=== PATIENT | male | born 1965 | race Caucasian/White ===

== ENCOUNTER 2019-12-14 06:11 | Inpatient (IN) ==
[2019-12-14] MEDS ORDERED: CeFAZolin Syr 2,000MG/20 ML 2,000 MG/20 ML SYRINGE IVPB ONE (06:44)
[2019-12-14] MEDS ORDERED: Ringers Solution, Lactated 1,000 ML IVC SCH ×2 (06:45→07:30)
[2019-12-14] MEDS ORDERED: MetroNIDAZOLE 500 MG/100 ML 500 MG/100 ML BAG IVPB ONE ×2 (06:49→14:17)
[2019-12-14] MEDS ORDERED: Isovue-300 50ML VIAL ONE (07:11)
[2019-12-14] MEDS ORDERED: *HR* Rocuronium Bromide 50 MG/5 ML VIAL ONE ×4 (07:21→14:24)
[2019-12-14] MEDS ORDERED: Lidocaine -MPF 2% 2 ML VIAL ONE (07:21)
[2019-12-14] MEDS ORDERED: Acetaminophen IV 1,000 MG/100 ML INFUS..BTL IVPB ONE (07:21)
[2019-12-14] MEDS ORDERED: *HR* Succinylcholine 200 MG/10 ML VIAL IVP ONE (07:21)
[2019-12-14] MEDS ORDERED: *HR* Propofol 200 MG/20 ML VIAL IVP ONE (07:21)
[2019-12-14] MEDS ORDERED: *HR* FentaNYL (PF) 100 MCG/2 ML VIAL ONE (07:21)
[2019-12-14] MEDS ORDERED: Ondansetron 4 MG/2 ML VIAL ONE (07:21)
[2019-12-14] MEDS ORDERED: Lidocaine HCL 4 ML Topical Solution (Laryng-O-Jet Kit Sterile Pak) TP ONE (07:21)
[2019-12-14] MEDS ORDERED: Dexamethasone 4 MG/ML VIAL ONE (07:21)
[2019-12-14] MEDS ORDERED: *HR* Midazolam HCl 2 MG/2 ML VIAL ONE (07:21)
[2019-12-14] MEDS ORDERED: Ondansetron 4 MG/2 ML VIAL IVP PRN ×2 (07:31→15:36)
[2019-12-14] MEDS ORDERED: *HR* Meperidine 25 MG/ML SYRINGE IVP PRN (07:31)
[2019-12-14] MEDS ORDERED: *HR* Promethazine 25 MG/ML VIAL IVP PRN (07:31)
[2019-12-14] MEDS ORDERED: *HR* HYDROmorphone PF 0.5 MG/0.5 ML SYRINGE IVP PRN (07:31)
[2019-12-14] MEDS ORDERED: *HR* Phenylephrine 10 MG/ML VIAL ONE (08:24)
[2019-12-14] MEDS ORDERED: *HR* HYDROMORPHONE 2 MG/ML VIAL ONE (11:25)
[2019-12-14] MEDS ORDERED: *HR* Magnesium Sulfate 1 GM/2 ML VIAL ONE (13:51)
[2019-12-14] MEDS ORDERED: Naloxone 0.4 MG/ML INJ IVP PRN (15:31)
[2019-12-14] MEDS ORDERED: *HR* OxyCODONE Immed Rel 5 MG TABLET PO PRN (15:36)
[2019-12-14] MEDS ORDERED: MetroNIDAZOLE 500 MG/100 ML 500 MG/100 ML BAG IVPB SCH (16:00)
[2019-12-14] MEDS: levoFLOXacin 750 MG/150 ML 750 MG/150 ML BAG IVPB SCH (17:28)
[2019-12-14] MEDS: Ringers Solution, Lactated 1,000 ML IVC SCH (17:29)
[2019-12-14] MEDS: *HR* OxyCODONE ER (12 HR) 10 MG TABLET PO SCH (17:29)
[2019-12-14] MEDS: MetroNIDAZOLE 500 MG/100 ML 500 MG/100 ML BAG IVPB SCH (21:13)
[2019-12-15] MEDS: *HR* OxyCODONE ER (12 HR) 10 MG TABLET PO SCH ×2 (04:27→15:57)
[2019-12-15] MEDS: Ringers Solution, Lactated 1,000 ML IVC SCH (04:28)
[2019-12-15 06:29] LABS: Basophils % 0.2 %; Hemoglobin 11.3 g/dL (12.9-16.9); Immature Granulocytes % 0.4 % (0-4); Lymphocytes # 0.4 K/mcL (0.6-4.6); Lymphocytes % 3.2 %; Mean Corpuscular HGB Conc 34.2 g/dL (31.6-35.5); Mean Corpuscular Hemoglobin 36.5 pg (28.0-33.3); Mean Corpuscular Volume 106.5 fL (83.0-100.0); Mean Platelet Volume 9.8 fL (9.4-12.4); Monocytes # 0.8 K/mcL (0.0-1.3); Neutrophils # 10.7 K/mcL (1.6-8.9); Platelet Count 223 K/mcL (140-400); Red Cell Distribution Width 12.5 % (11.5-14.5); Segmented Neutrophils % 89.2 %; White Blood Count 11.9 K/mcL (4.3-11.1)
[2019-12-15 06:43] LABS: BUN/Creatinine Ratio 15 (6-26); Blood Urea Nitrogen 10 mg/dL (6-20); Calcium 8.3 mg/dL (8.6-10.3); Carbon Dioxide 25 mEq/L (23-29); Chloride 107 mEq/L (98-107); Glucose 120 mg/dL (70-105); Osmolality,Calculated 290 (280-300); Phosphorous 3.1 mg/dL (2.7-4.5); Potassium 4.3 mEq/L (3.5-5.1); Sodium 140 mEq/L (136-145); eGFR For African Americans > 60 (> 60); eGFR For Non-African Americans > 60 (> 60)
[2019-12-15] MEDS: MetroNIDAZOLE 500 MG/100 ML 500 MG/100 ML BAG IVPB SCH ×3 (06:46→21:57)
[2019-12-15] MEDS ORDERED: Morphine Sulfate Oral CONC 10 MG/0.5 ML ORAL.SYG SL PRN (08:35)
[2019-12-15] MEDS: levoFLOXacin 750 MG/150 ML 750 MG/150 ML BAG IVPB SCH (09:13)
[2019-12-15] MEDS: D5% in 0.45% NACL w KCl 20 MEQ/1,000 ML MLS IVC SCH ×2 (09:20→18:44)
[2019-12-15] MEDS: Nicotine 7 MG PATCH.TD24 TD SCH (15:57)
[2019-12-15] MEDS: *HR* OxyCODONE/APAP 10/325 TABLET PO PRN (21:56)
[2019-12-16] MEDS: D5% in 0.45% NACL w KCl 20 MEQ/1,000 ML MLS IVC SCH ×2 (04:27→13:51)
[2019-12-16] MEDS: *HR* OxyCODONE ER (12 HR) 10 MG TABLET PO SCH ×2 (04:27→16:05)
[2019-12-16] MEDS: MetroNIDAZOLE 500 MG/100 ML 500 MG/100 ML BAG IVPB SCH ×3 (06:40→22:51)
[2019-12-16] MEDS: *HR* Enoxaparin 40 MG/0.4 ML SYRINGE SQ SCH (06:40)
[2019-12-16] MEDS: *HR* OxyCODONE/APAP 10/325 TABLET PO PRN ×2 (08:53→22:52)
[2019-12-16] MEDS: Nicotine 7 MG PATCH.TD24 TD SCH (08:54)
[2019-12-16] MEDS: levoFLOXacin 750 MG/150 ML 750 MG/150 ML BAG IVPB SCH (08:54)
[2019-12-16 11:01] LABS: Basophils % 0.2 %; Eosinophils % 0.1 %; Hematocrit 32.6 % (37.5-50.1); Immature Granulocytes % 1.4 % (0-4); Lymphocytes # 0.5 K/mcL (0.6-4.6); Lymphocytes % 5.7 %; Mean Corpuscular HGB Conc 33.7 g/dL (31.6-35.5); Mean Corpuscular Hemoglobin 36.2 pg (28.0-33.3); Mean Corpuscular Volume 107.2 fL (83.0-100.0); Mean Platelet Volume 9.8 fL (9.4-12.4); Monocytes # 0.6 K/mcL (0.0-1.3); Monocytes % 7.6 %; Neutrophils # 7.2 K/mcL (1.6-8.9); Platelet Count 218 K/mcL (140-400); Red Blood Count 3.04 M/mcL (4.19-5.50); Red Cell Distribution Width 12.6 % (11.5-14.5); White Blood Count 8.5 K/mcL (4.3-11.1)
[2019-12-16 11:19] LABS: BUN/Creatinine Ratio 14 (6-26); Blood Urea Nitrogen 8 mg/dL (6-20); Calcium 8.3 mg/dL (8.6-10.3); Carbon Dioxide 23 mEq/L (23-29); Chloride 107 mEq/L (98-107); Glucose 162 mg/dL (70-105); Magnesium 1.7 mg/dL (1.6-2.6); Osmolality,Calculated 286 (280-300); Phosphorous 1.5 mg/dL (2.7-4.5); Potassium 3.8 mEq/L (3.5-5.1); Sodium 137 mEq/L (136-145); eGFR For African Americans > 60 (> 60); eGFR For Non-African Americans > 60 (> 60)
[2019-12-16] MEDS ORDERED: Potassium Phosphate 44 MEQ in 0.9 % Sodium Chloride 250 ML IVPB ONE (13:14)
[2019-12-16] MEDS ORDERED: Ketorolac 30 MG/ML VIAL IVP ONE (13:15)
[2019-12-16] MEDS: Ketorolac 15 MG/ML VIAL IVP SCH ×2 (18:51→22:52)
[2019-12-17] MEDS: *HR* OxyCODONE ER (12 HR) 10 MG TABLET PO SCH (04:38)
[2019-12-17] MEDS: D5% in 0.45% NACL w KCl 20 MEQ/1,000 ML MLS IVC SCH (04:38)
[2019-12-17] MEDS: Ketorolac 15 MG/ML VIAL IVP SCH (06:21)
[2019-12-17] MEDS: MetroNIDAZOLE 500 MG/100 ML 500 MG/100 ML BAG IVPB SCH (06:22)
[2019-12-17] MEDS: *HR* Enoxaparin 40 MG/0.4 ML SYRINGE SQ SCH (06:22)
[2019-12-17 07:13] LABS: BUN/Creatinine Ratio 9 (6-26); Blood Urea Nitrogen 6 mg/dL (6-20); Calcium 8.3 mg/dL (8.6-10.3); Carbon Dioxide 24 mEq/L (23-29); Chloride 110 mEq/L (98-107); Glucose 113 mg/dL (70-105); Magnesium 1.9 mg/dL (1.6-2.6); Osmolality,Calculated 288 (280-300); Phosphorous 3.5 mg/dL (2.7-4.5); Potassium 4.1 mEq/L (3.5-5.1); Sodium 140 mEq/L (136-145); eGFR For African Americans > 60 (> 60); eGFR For Non-African Americans > 60 (> 60)
[2019-12-17] MEDS ORDERED: Ibuprofen 600 MG TABLET PO PRN (07:34)
[2019-12-17] MEDS ORDERED: D5% in 0.45% NACL w KCl 20 MEQ/1,000 ML MLS IVC SCH (07:35)
[2019-12-17] MEDS: levoFLOXacin 750 MG/150 ML 750 MG/150 ML BAG IVPB SCH (09:17)
[2019-12-17] MEDS: Nicotine 7 MG PATCH.TD24 TD SCH (09:27)
[2019-12-17 10:13] VITALS: BP 101/66
[2019-12-17] MEDS ORDERED: FLU Vac QV 20-21 (6Month+)/PF 0.5 ML SYRINGE IM ONE (13:18)
== END 2019-12-17 16:55 | disposition home or self-care (01) | DRG 331 ==
LOC: SAMDAY 06:11 → 3ANU 16:12
PROVIDERS: ADMIT Surgery; ATTEND Surgery

== ENCOUNTER 2020-06-26 16:36 | Observation (INO) ==
[2020-06-26] MEDS ORDERED: Isovue-370 500 ML BOTTLE IVP ONE (17:12)
[2020-06-26] MEDS ORDERED: 0.9 % Sodium Chloride 1,000 ML IVC ONE (17:17)
[2020-06-26] MEDS ORDERED: *HR* FentaNYL (PF) 100 MCG/2 ML VIAL IVP ONE ×2 (17:17→17:55)
[2020-06-26] MEDS ORDERED: Ondansetron 4 MG/2 ML VIAL IVP ONE (17:17)
[2020-06-26 17:29] LABS: Basophils % 0.3 %; Eosinophils % 0.5 %; Hematocrit 41.5 % (37.5-50.1); Hemoglobin 14.5 g/dL (12.9-16.9); Immature Granulocytes % 0.7 % (0-4); Lymphocytes # 0.6 K/mcL (0.6-4.6); Lymphocytes % 6.4 %; Mean Corpuscular HGB Conc 34.9 g/dL (31.6-35.5); Mean Corpuscular Volume 108.6 fL (83.0-100.0); Mean Platelet Volume 9.2 fL (9.4-12.4); Monocytes # 0.4 K/mcL (0.0-1.3); Monocytes % 5.1 %; Neutrophils # 7.5 K/mcL (1.6-8.9); Platelet Count 269 K/mcL (140-400); Red Blood Count 3.82 M/mcL (4.19-5.50); White Blood Count 8.6 K/mcL (4.3-11.1)
[2020-06-26 17:52] LABS: Alanine Aminotransferase 16 Units/L (7-52); Albumin 4.3 g/dL (3.5-5.7); Albumin/Globulin Ratio 1.2 (1.1-2.2); Alkaline Phosphatase 92 Units/L (34-104); Aspartate Amino Transferase 21 Units/L (13-39); BUN/Creatinine Ratio 22 (6-26); Bilirubin,Total 0.3 mg/dL (0.3-1.0); Blood Urea Nitrogen 15 mg/dL (6-20); Calcium 9.5 mg/dL (8.6-10.3); Carbon Dioxide 24 mEq/L (23-29); Chloride 102 mEq/L (98-107); Globulin 3.5 g/dL (2.4-3.5); Glucose 136 mg/dL (70-105); Lipase 116 Units/L (11-82); Osmolality,Calculated 287 (280-300); Potassium 3.7 mEq/L (3.5-5.1); Sodium 137 mEq/L (136-145); Total Protein 7.8 g/dL (6.4-8.9); Troponin I < 0.03 ng/mL (< 0.04); eGFR For African Americans > 60 (> 60); eGFR For Non-African Americans > 60 (> 60)
[2020-06-26] MEDS ORDERED: *HR* HYDROmorphone (PF) 1 MG/ML SYRINGE IVP ONE (19:04)
[2020-06-26] MEDS ORDERED: Ketamine *HR* 20 MG in 0.9 % Sodium Chloride 100 ML IVPB STA (19:31)
[2020-06-26] MEDS ORDERED: Ondansetron 4 MG/2 ML VIAL IVP PRN (20:56)
[2020-06-26] MEDS ORDERED: Acetaminophen 325 MG TABLET PO PRN (20:56)
[2020-06-26] MEDS ORDERED: Naloxone 0.4 MG/ML INJ IVP PRN (20:56)
[2020-06-26] MEDS ORDERED: Melatonin 3 MG TABLET PO PRN (20:56)
[2020-06-26] MEDS: Ketorolac 15 MG/ML VIAL IVP PRN (22:00)
[2020-06-26] MEDS ORDERED: Nicotine 21 MG PATCH.TD24 TD PRN (22:18)
[2020-06-27 00:52] LABS: Influenza A PCR Negative (Negative); Influenza B PCR Negative (Negative); Resp. Syncytial Virus PCR Negative (Negative)
[2020-06-27 01:04] LABS: SARS-CoV-2 by PCR (In House) Negative (Negative)
[2020-06-27 02:21] LABS: Basophils % 0.2 %; Eosinophils % 0.2 %; Hemoglobin 13.7 g/dL (12.9-16.9); Immature Granulocytes % 0.6 % (0-4); Lymphocytes # 0.5 K/mcL (0.6-4.6); Mean Corpuscular HGB Conc 34.3 g/dL (31.6-35.5); Mean Corpuscular Hemoglobin 37.2 pg (28.0-33.3); Mean Corpuscular Volume 108.7 fL (83.0-100.0); Mean Platelet Volume 9.3 fL (9.4-12.4); Monocytes # 0.6 K/mcL (0.0-1.3); Monocytes % 6.5 %; Neutrophils # 7.4 K/mcL (1.6-8.9); Platelet Count 255 K/mcL (140-400); Red Blood Count 3.68 M/mcL (4.19-5.50); Segmented Neutrophils % 86.5 %; White Blood Count 8.5 K/mcL (4.3-11.1)
[2020-06-27 02:34] LABS: Alanine Aminotransferase 15 Units/L (7-52); Albumin 3.9 g/dL (3.5-5.7); Albumin/Globulin Ratio 1.3 (1.1-2.2); Alkaline Phosphatase 85 Units/L (34-104); Aspartate Amino Transferase 18 Units/L (13-39); BUN/Creatinine Ratio 29 (6-26); Bilirubin,Total 0.3 mg/dL (0.3-1.0); Blood Urea Nitrogen 14 mg/dL (6-20); Calcium 8.7 mg/dL (8.6-10.3); Carbon Dioxide 24 mEq/L (23-29); Chloride 104 mEq/L (98-107); Globulin 3.1 g/dL (2.4-3.5); Glucose 110 mg/dL (70-105); Osmolality,Calculated 283 (280-300); Phosphorous 3.6 mg/dL (2.7-4.5); Sodium 136 mEq/L (136-145); eGFR For African Americans > 60 (> 60); eGFR For Non-African Americans > 60 (> 60)
[2020-06-27] MEDS: Ketorolac 15 MG/ML VIAL IVP PRN (05:33)
[2020-06-27] MEDS ORDERED: Chloraseptic Spray 177 ML BOTTLE MM PRN (05:40)
[2020-06-27 15:43] VITALS: BP 129/86
[2020-06-27] MEDS ORDERED: Sennosides 8.6 MG TABLET PO SCH (21:00)
[2020-06-27] MEDS ORDERED: Budesonide/Formoterol 160/4.5 1 PUFF INH IH SCH (22:00)
[2020-06-28] MEDS ORDERED: Ciprofloxacin HCL Soln 5 ML BOTTLE RIGHT EYE SCH (09:00)
[2020-06-28] MEDS ORDERED: Cyanocobalamin (B-12) 1,000 MCG TABLET PO SCH (09:00)
[2020-06-28] MEDS ORDERED: FLUoxetine 20 MG CAPSULE PO SCH (09:00)
[2020-06-28] MEDS ORDERED: Dexamethasone OPTH Drop 5 ML BOTTLE RIGHT EYE SCH (09:00)
[2020-06-28] MEDS ORDERED: Multivit/Ca/Min/Fe/FA 1 TAB TABLET PO SCH (09:00)
== END 2020-06-27 17:41 | disposition home or self-care (01) ==
LOC: EMEROOARM 16:36 → 3ANU 16:36 → SUATTDRO 19:54 → 3ANU 20:52
PROVIDERS: ADMIT Internal Medicine; ATTEND Internal Medicine

== ENCOUNTER 2021-05-18 06:18 | Inpatient (IN) ==
[2021-05-18] MEDS ORDERED: Ringers Solution, Lactated 1,000 ML IVC SCH (06:45)
[2021-05-18] MEDS ORDERED: *HR* FentaNYL (PF) 100 MCG/2 ML VIAL ONE ×2 (07:20→10:27)
[2021-05-18] MEDS ORDERED: Bupivacaine/EPI 1:200k 0.25% 50 ML VIAL ONE (07:21)
[2021-05-18] MEDS ORDERED: *HR* Propofol 200 MG/20 ML VIAL IVP ONE (07:21)
[2021-05-18] MEDS ORDERED: *HR* Midazolam HCl 2 MG/2 ML VIAL ONE (07:21)
[2021-05-18] MEDS ORDERED: *HR* Rocuronium Bromide 50 MG/5 ML VIAL ONE ×3 (07:24→10:55)
[2021-05-18] MEDS ORDERED: Lidocaine -MPF 2% 5 ML VIAL ONE (07:24)
[2021-05-18] MEDS ORDERED: Lidocaine HCL 4 ML Topical Solution (Laryng-O-Jet Kit Sterile Pak) TP ONE (07:24)
[2021-05-18] MEDS ORDERED: Ondansetron 4 MG/2 ML VIAL ONE (07:26)
[2021-05-18] MEDS ORDERED: CeFAZolin Syr 2,000MG/20 ML 2,000 MG/20 ML SYRINGE IVPB ONE (07:45)
[2021-05-18] MEDS ORDERED: *HR* OxyCODONE Immed Rel 5 MG TABLET PO PRN (07:49)
[2021-05-18] MEDS ORDERED: Promethazine 6.25 MG in Water for inj. (sterile) 20 ML IVPB PRN (07:49)
[2021-05-18] MEDS ORDERED: Ondansetron 4 MG/2 ML VIAL IVP PRN (07:49)
[2021-05-18] MEDS ORDERED: *HR* Succinylcholine 200 MG/10 ML VIAL IVP ONE (07:52)
[2021-05-18] MEDS ORDERED: Acetaminophen IV 1,000 MG/100 ML BAG IVPB ONE (08:22)
[2021-05-18] MEDS ORDERED: EPHEDrine 50 MG/ML VIAL ONE (10:08)
[2021-05-18] MEDS ORDERED: Albumin Human 5% 12.5 GM/250 ML IV.SOLN ONE (11:27)
[2021-05-18] MEDS ORDERED: Sugammadex Sodium 200 MG/2 ML VIAL IV ONE (12:01)
[2021-05-18] MEDS ORDERED: *HR* HYDROMORPHONE 2 MG/ML VIAL ONE (12:01)
[2021-05-18] MEDS: *HR* HYDROmorphone PF 0.5 MG/0.5 ML SYRINGE IVP PRN ×2 (12:40→12:54)
[2021-05-18] MEDS ORDERED: Ketorolac 30 MG/ML VIAL IVP ONE (13:43)
[2021-05-18] MEDS ORDERED: *HR* HYDROmorphone PCA *PREMADE* 20 MG/1MG/ML (20mL) PCA VIAL IVC PRN (13:43)
[2021-05-18] MEDS: 0.9 % Sodium Chloride 1,000 ML IVC SCH ×2 (14:10→23:38)
[2021-05-18] MEDS: Acetaminophen IV 1,000 MG/100 ML BAG IVPB SCH (18:16)
[2021-05-18] MEDS: Budesonide/Formoterol 160/4.5 1 PUFF INH IH SCH (20:11)
[2021-05-19] MEDS: Acetaminophen IV 1,000 MG/100 ML BAG IVPB SCH ×5 (05:11→23:22)
[2021-05-19] MEDS: Budesonide/Formoterol 160/4.5 1 PUFF INH IH SCH ×2 (08:01→20:24)
[2021-05-19] MEDS: FLUoxetine 20 MG CAPSULE PO SCH (08:03)
[2021-05-19] MEDS: 0.9 % Sodium Chloride 1,000 ML IVC SCH ×2 (10:23→20:52)
[2021-05-19] MEDS: Ketorolac 30 MG/ML VIAL IVP PRN (14:43)
[2021-05-19] MEDS ORDERED: Isovue-370 500 ML BOTTLE IVP ONE (15:03)
[2021-05-19] MEDS: Ipratropium/Albuterol Neb 3 ML IH PRN (15:45)
[2021-05-19 16:54] LABS: Alanine Aminotransferase 12 Units/L (7-52); Albumin 3.4 g/dL (3.5-5.7); Albumin/Globulin Ratio 1.4 (1.1-2.2); Alkaline Phosphatase 65 Units/L (34-104); Aspartate Amino Transferase 25 Units/L (13-39); BUN/Creatinine Ratio 28 (6-26); Bilirubin,Total 0.7 mg/dL (0.3-1.0); Blood Urea Nitrogen 17 mg/dL (6-20); Carbon Dioxide 25 mEq/L (23-29); Chloride 106 mEq/L (98-107); Globulin 2.4 g/dL (2.4-3.5); Glucose 137 mg/dL (70-105); Osmolality,Calculated 288 (280-300); Potassium 3.5 mEq/L (3.5-5.1); Sodium 137 mEq/L (136-145); Total Protein 5.8 g/dL (6.4-8.9); eGFR For African Americans > 60 (> 60); eGFR For Non-African Americans > 60 (> 60)
[2021-05-19] MEDS: *HR* Heparin 5,000 UNIT/ML VIAL SQ SCH (17:23)
[2021-05-20 03:31] LABS: Basophils % 0.3 %; Eosinophils % 0.5 %; Hematocrit 31.5 % (37.5-50.1); Hemoglobin 11.2 g/dL (12.9-16.9); Immature Granulocytes % 0.5 % (0-4); Lymphocytes # 0.7 K/mcL (0.6-4.6); Lymphocytes % 8.4 %; Mean Corpuscular HGB Conc 35.6 g/dL (31.6-35.5); Mean Corpuscular Hemoglobin 35.9 pg (28.0-33.3); Monocytes # 0.9 K/mcL (0.0-1.3); Monocytes % 9.8 %; Neutrophils # 7.1 K/mcL (1.6-8.9); Platelet Count 194 K/mcL (140-400); Red Blood Count 3.12 M/mcL (4.19-5.50); Red Cell Distribution Width 12.3 % (11.5-14.5); Segmented Neutrophils % 80.5 %; White Blood Count 8.9 K/mcL (4.3-11.1)
[2021-05-20 03:45] LABS: Alanine Aminotransferase 12 Units/L (7-52); Albumin 3.2 g/dL (3.5-5.7); Albumin/Globulin Ratio 1.2 (1.1-2.2); Alkaline Phosphatase 64 Units/L (34-104); Aspartate Amino Transferase 25 Units/L (13-39); BUN/Creatinine Ratio 24 (6-26); Bilirubin,Total 0.7 mg/dL (0.3-1.0); Blood Urea Nitrogen 13 mg/dL (6-20); Calcium 8.1 mg/dL (8.6-10.3); Carbon Dioxide 23 mEq/L (23-29); Chloride 107 mEq/L (98-107); Globulin 2.6 g/dL (2.4-3.5); Glucose 108 mg/dL (70-105); Osmolality,Calculated 285 (280-300); Potassium 3.5 mEq/L (3.5-5.1); Sodium 137 mEq/L (136-145); Total Protein 5.8 g/dL (6.4-8.9); eGFR For African Americans > 60 (> 60); eGFR For Non-African Americans > 60 (> 60)
[2021-05-20] MEDS: Ipratropium/Albuterol Neb 3 ML IH PRN (04:04)
[2021-05-20] MEDS: Acetaminophen IV 1,000 MG/100 ML BAG IVPB SCH ×4 (05:31→23:07)
[2021-05-20] MEDS: *HR* Heparin 5,000 UNIT/ML VIAL SQ SCH ×2 (05:31→17:35)
[2021-05-20] MEDS: Budesonide/Formoterol 160/4.5 1 PUFF INH IH SCH ×2 (07:51→19:42)
[2021-05-20] MEDS: FLUoxetine 20 MG CAPSULE PO SCH (07:56)
[2021-05-20] MEDS: Ketorolac 30 MG/ML VIAL IVP PRN (07:56)
[2021-05-20] MEDS: 0.9 % Sodium Chloride 1,000 ML IVC SCH ×2 (08:00→19:39)
[2021-05-21] MEDS: *HR* HYDROcodone/Acet 5/325 mg TABLET PO PRN ×4 (04:13→21:04)
[2021-05-21] MEDS: Acetaminophen IV 1,000 MG/100 ML BAG IVPB SCH ×3 (05:20→16:55)
[2021-05-21] MEDS: *HR* Heparin 5,000 UNIT/ML VIAL SQ SCH ×2 (05:22→16:57)
[2021-05-21] MEDS: Ipratropium/Albuterol Neb 3 ML IH PRN ×2 (05:30→20:07)
[2021-05-21] MEDS: 0.9 % Sodium Chloride 1,000 ML IVC SCH (05:53)
[2021-05-21 06:02] LABS: Basophils % 0.4 %; Eosinophils # 0.1 K/mcL (0.0-0.6); Eosinophils % 1.2 %; Hematocrit 30.9 % (37.5-50.1); Hemoglobin 10.7 g/dL (12.9-16.9); Immature Granulocytes % 0.6 % (0-4); Lymphocytes # 0.4 K/mcL (0.6-4.6); Lymphocytes % 6.1 %; Mean Corpuscular HGB Conc 34.6 g/dL (31.6-35.5); Mean Corpuscular Hemoglobin 35.8 pg (28.0-33.3); Mean Corpuscular Volume 103.3 fL (83.0-100.0); Mean Platelet Volume 9.8 fL (9.4-12.4); Monocytes # 0.6 K/mcL (0.0-1.3); Monocytes % 8.7 %; Neutrophils # 5.7 K/mcL (1.6-8.9); Platelet Count 203 K/mcL (140-400); Red Blood Count 2.99 M/mcL (4.19-5.50); Red Cell Distribution Width 12.3 % (11.5-14.5); White Blood Count 6.9 K/mcL (4.3-11.1)
[2021-05-21 06:24] LABS: Alanine Aminotransferase 17 Units/L (7-52); Albumin 3.3 g/dL (3.5-5.7); Albumin/Globulin Ratio 1.2 (1.1-2.2); Alkaline Phosphatase 68 Units/L (34-104); Aspartate Amino Transferase 34 Units/L (13-39); BUN/Creatinine Ratio 22 (6-26); Bilirubin,Total 0.5 mg/dL (0.3-1.0); Blood Urea Nitrogen 11 mg/dL (6-20); Calcium 8.1 mg/dL (8.6-10.3); Carbon Dioxide 23 mEq/L (23-29); Chloride 107 mEq/L (98-107); Globulin 2.8 g/dL (2.4-3.5); Glucose 99 mg/dL (70-105); Osmolality,Calculated 287 (280-300); Potassium 3.7 mEq/L (3.5-5.1); Sodium 139 mEq/L (136-145); Total Protein 6.1 g/dL (6.4-8.9); eGFR For African Americans > 60 (> 60); eGFR For Non-African Americans > 60 (> 60)
[2021-05-21] MEDS: FLUoxetine 20 MG CAPSULE PO SCH (07:33)
[2021-05-21] MEDS: Budesonide/Formoterol 160/4.5 1 PUFF INH IH SCH ×2 (07:42→20:06)
[2021-05-21] MEDS: D5% in 0.45% NACL w KCl 20 MEQ/1,000 ML MLS IVC SCH (16:57)
[2021-05-21] MEDS: Ondansetron 4 MG/2 ML VIAL IVP PRN (21:11)
[2021-05-22] MEDS: *HR* Heparin 5,000 UNIT/ML VIAL SQ SCH ×2 (06:26→17:59)
[2021-05-22] MEDS: D5% in 0.45% NACL w KCl 20 MEQ/1,000 ML MLS IVC SCH ×2 (07:15→21:30)
[2021-05-22] MEDS: Budesonide/Formoterol 160/4.5 1 PUFF INH IH SCH ×2 (07:54→20:28)
[2021-05-22] MEDS: FLUoxetine 20 MG CAPSULE PO SCH (08:15)
[2021-05-22] MEDS: Ketorolac 30 MG/ML VIAL IVP PRN ×3 (08:37→21:29)
[2021-05-22] MEDS: Ondansetron 4 MG/2 ML VIAL IVP PRN ×3 (08:39→21:28)
[2021-05-22] MEDS: Psyllium 1 PACKET POWD.PACK PO SCH ×2 (11:12→20:10)
[2021-05-23] MEDS: *HR* HYDROcodone/Acet 5/325 mg TABLET PO PRN (01:07)
[2021-05-23] MEDS: Ondansetron 4 MG/2 ML VIAL IVP PRN (04:37)
[2021-05-23] MEDS: Ketorolac 30 MG/ML VIAL IVP PRN (04:39)
[2021-05-23] MEDS: *HR* Heparin 5,000 UNIT/ML VIAL SQ SCH ×2 (05:32→18:12)
[2021-05-23 05:39] LABS: Basophils % 0.1 %; Hemoglobin 9.4 g/dL (12.9-16.9); Immature Granulocytes % 1.3 % (0-4); Lymphocytes # 0.5 K/mcL (0.6-4.6); Lymphocytes % 5.8 %; Mean Corpuscular HGB Conc 34.8 g/dL (31.6-35.5); Mean Corpuscular Hemoglobin 36.2 pg (28.0-33.3); Mean Corpuscular Volume 103.8 fL (83.0-100.0); Mean Platelet Volume 9.6 fL (9.4-12.4); Monocytes # 0.9 K/mcL (0.0-1.3); Monocytes % 9.1 %; Neutrophils # 7.9 K/mcL (1.6-8.9); Platelet Count 272 K/mcL (140-400); Red Cell Distribution Width 12.4 % (11.5-14.5); Segmented Neutrophils % 83.7 %; White Blood Count 9.4 K/mcL (4.3-11.1)
[2021-05-23 06:15] LABS: BUN/Creatinine Ratio 51 (6-26); Blood Urea Nitrogen 24 mg/dL (6-20); Calcium 9.1 mg/dL (8.6-10.3); Carbon Dioxide 28 mEq/L (23-29); Chloride 105 mEq/L (98-107); Glucose 142 mg/dL (70-105); Magnesium 1.7 mg/dL (1.6-2.6); Osmolality,Calculated 294 (280-300); Phosphorous 3.1 mg/dL (2.7-4.5); Sodium 139 mEq/L (136-145); eGFR For African Americans > 60 (> 60); eGFR For Non-African Americans > 60 (> 60)
[2021-05-23] MEDS: Budesonide/Formoterol 160/4.5 1 PUFF INH IH SCH ×2 (08:05→19:59)
[2021-05-23] MEDS: Psyllium 1 PACKET POWD.PACK PO SCH ×2 (09:15→09:31)
[2021-05-23] MEDS: FLUoxetine 20 MG CAPSULE PO SCH (09:15)
[2021-05-23] MEDS ORDERED: Lidocaine Jelly 11 ml Syringe MM STA (09:21)
[2021-05-23] MEDS ORDERED: Saliva Stimulant 44.3ml BOTTLE PO PRN (09:26)
[2021-05-23] MEDS ORDERED: Chloraseptic Spray 177 ML BOTTLE MM PRN (09:26)
[2021-05-23] MEDS ORDERED: Ondansetron 4 MG/2 ML VIAL IVP ONE (09:41)
[2021-05-23] MEDS ORDERED: Ondansetron 4 MG/2 ML VIAL IVP PRN (09:42)
[2021-05-23] MEDS: Scopolamine Patch 1.5 MG PATCH.TD72 TD SCH ×2 (10:16→11:09)
[2021-05-23] MEDS: Nicotine 21 MG PATCH.TD24 TD SCH (10:16)
[2021-05-23] MEDS: Metoclopramide 20 MG in 0.9 % Sodium Chloride 50 ML IVPB SCH ×2 (10:17→18:13)
[2021-05-23] MEDS ORDERED: *HR* LORazepam 2 MG/ML VIAL IVP ONE (10:38)
[2021-05-23] MEDS: Ipratropium/Albuterol Neb 3 ML IH PRN ×3 (11:00→19:59)
[2021-05-23] MEDS: Acetylcysteine 10% 2 ML INHSOL IH SCH ×3 (11:00→19:59)
[2021-05-23] MEDS: D5% in 0.45% NACL w KCl 20 MEQ/1,000 ML MLS IVC SCH (12:52)
[2021-05-23] MEDS: Acetaminophen IV 1,000 MG/100 ML BAG IVPB SCH ×2 (13:24→17:20)
[2021-05-23] MEDS ORDERED: D5% in 0.45% NACL w KCl 20 MEQ/1,000 ML MLS IVC SCH (16:30)
[2021-05-24] MEDS: Acetaminophen IV 1,000 MG/100 ML BAG IVPB SCH ×2 (00:02→05:04)
[2021-05-24] MEDS: Metoclopramide 20 MG in 0.9 % Sodium Chloride 50 ML IVPB SCH ×2 (02:16→09:48)
[2021-05-24] MEDS: Acetylcysteine 10% 2 ML INHSOL IH SCH ×5 (05:02→16:00)
[2021-05-24] MEDS: *HR* Heparin 5,000 UNIT/ML VIAL SQ SCH ×2 (05:24→17:10)
[2021-05-24 07:29] LABS: Hematocrit 26.7 % (37.5-50.1); Hemoglobin 8.9 g/dL (12.9-16.9); Mean Corpuscular HGB Conc 33.3 g/dL (31.6-35.5); Mean Corpuscular Hemoglobin 34.6 pg (28.0-33.3); Mean Corpuscular Volume 103.9 fL (83.0-100.0); Mean Platelet Volume 10.4 fL (9.4-12.4); Nucleated Red Blood Cells 0.3 /100 WBC (0); Platelet Count 231 K/mcL (140-400); Red Blood Count 2.57 M/mcL (4.19-5.50); Red Cell Distribution Width 12.5 % (11.5-14.5); White Blood Count 5.9 K/mcL (4.3-11.1)
[2021-05-24] MEDS: Nicotine 21 MG PATCH.TD24 TD SCH (08:00)
[2021-05-24] MEDS: Ipratropium/Albuterol Neb 3 ML IH PRN ×3 (08:02→16:00)
[2021-05-24] MEDS: Budesonide/Formoterol 160/4.5 1 PUFF INH IH SCH (08:02)
[2021-05-24 08:18] LABS: Albumin 2.9 g/dL (3.5-5.7); BUN/Creatinine Ratio 21 (6-26); Blood Urea Nitrogen 13 mg/dL (6-20); Calcium 7.7 mg/dL (8.6-10.3); Carbon Dioxide 33 mEq/L (23-29); Chloride 103 mEq/L (98-107); Chol/HDL Ratio 3.5 (0-4.9); Cholesterol 125 mg/dL (< 200); Glucose 119 mg/dL (70-105); HDL Cholesterol 36 mg/dL (40-59); LDL Cholesterol,Calculated 52 mg/dL (< 100); Magnesium 2.2 mg/dL (1.6-2.6); Osmolality,Calculated 293 (280-300); Phosphorous 3.3 mg/dL (2.7-4.5); Potassium 3.6 mEq/L (3.5-5.1); Sodium 141 mEq/L (136-145); Triglycerides 183 mg/dL (< 150); eGFR For African Americans > 60 (> 60); eGFR For Non-African Americans > 60 (> 60)
[2021-05-24 08:47] LABS: Lymphocytes # 0.7 K/mcL (0.6-4.6); Monocytes # 0.4 K/mcL (0.0-1.3); Neutrophils # 4.8 K/mcL (1.6-8.9)
[2021-05-24 08:51] LABS: Platelet Estimate Normal (Normal); Polychromasia 1+ (Not Present)
[2021-05-24 09:00] LABS: Toxic Granulation Present (Not Present)
[2021-05-24 11:04] VITALS: O2SAT 92
[2021-05-24 11:10] VITALS: BP 126/70; PULSE 89; TEMP 98.1
[2021-05-24] MEDS ORDERED: Ibuprofen 600 MG TABLET PO SCH (15:00)
== END 2021-05-24 18:06 | disposition home or self-care (01) | DRG 353 ==
LOC: SAMDAY 06:18 → 3ANU 13:31
PROVIDERS: ADMIT Surgery; ATTEND Surgery